=== PATIENT | male | born 1960 | race Hispanic/Latino ===

== ENCOUNTER → 2019-07-12 | Day surgery (SDC) | payer OTHER ==
[2019-07-11 11:26] LABS: BASOPHILS # (AUTO) 0.1 (0.0-0.1); BASOPHILS % 0.7 % (0.0-1.0); EOSINOPHILS # (AUTO) 1.2 (0.0-0.4); EOSINOPHILS % 11.2 % (0.0-6.0); HEMATOCRIT 46.1 % (38.2-49.6); HEMOGLOBIN 15.6 g/dL (14.0-18.0); LYMPHOCYTES # (AUTO) 2.5 (1.0-3.2); MEAN CORPUSCULAR HEMOGLOBIN 32.1 pg (28-32); MEAN CORPUSCULAR HGB CONC 33.8 g/dL (31-35); MEAN CORPUSCULAR VOLUME 94.9 fL (81-99); MONOCYTES # (AUTO) 0.8 (0.2-0.8); MONOCYTES % 7.2 % (4.4-11.3); NEUTROPHILS # (AUTO) 6.3 (2.1-6.9); NEUTROPHILS % 57.4 % (38.7-80.0); PLATELET COUNT 195 x10e3/uL (140-360); RED BLOOD COUNT 4.86 x10e6/uL (4.3-5.7); RED CELL DISTRIBUTION WIDTH 12.5 % (11.7-14.4)
[2019-07-11 11:43] LABS: ANION GAP 14.2 mmol/L (8-16); BLOOD UREA NITROGEN 17 mg/dL (7-26); BUN/CREATININE RATIO 19 (6-25); CALCIUM 10.4 mg/dL (8.4-10.2); CARBON DIOXIDE 25 mmol/L (22-29); CHLORIDE 103 mmol/L (98-107); CREATININE, SERUM 0.88 mg/dL (0.72-1.25); EST GLOMERULAR FILTRATION RATE > 60 ML/MIN (60-); GLUCOSE 70 mg/dL (74-118); POTASSIUM 4.2 mmol/L (3.5-5.1); SODIUM 138 mmol/L (136-145)
--- NOTE | 2019-07-11 12:51 | Diagnostic Imaging Report ---
EXAMINATION: CHEST 2 VIEWS INDICATION: Pre-operative COMPARISON: None FINDINGS: LINES/TUBES:None LUNGS:The lungs are well-inflated. No focal consolidation or pulmonary edema. Scattered subcentimeter calcified granulomas. PLEURA:No pleural effusion or pneumothorax. MEDIASTINUM:The cardiomediastinal silhouette appears normal in size and shape. BONES/SOFT TISSUES:No acute osseous injury. ABDOMEN:No free air under the diaphragm. IMPRESSION: No focal pneumonia or pulmonary edema. Signed by: Mary Mixon MD on 07/11/2019 12:48 PM
[~2019-07-12] MED LIST: ACETAMINOPHEN 1000 MG/100 ML 100 ML IV ONE; AMLODIPINE BESYL5 MG PO; ASPIRIN81 MG PO; BACITRACIN 50,000 UNIT VIAL ONE; BUPIVACAINE 0.5%/EPI 30 ML SDV INJ ONE; CEFAZOLIN SOD 1 GM/NS 50ML 50 ML IV ONE; CENTRUM SILVER1 EAC3 PEG; CILOSTAZOL100 MG PO; DEXAMETHASONE SOD PHOS INJ 4 MG/ML VIAL ONE; DEXTROSE 5% 250ML 250 ML IV ONE; EPHEDRINE SULFATE INJ 50 MG/10 ML SYR ONE; FENTANYL CITRATE/PF 100MCG/2 ML INJ ONE; GLIMEPIRIDE2 MG PO; JANUVIA100 MG PO; LEVEMIR100 UNIT/1 SQ; LIDOCAINE 1% W/EPINEPHRINE 20 ML VIAL ONE; LIDOCAINE HCL 2% LOCAL INJ 5 ML SDV VIAL INJ ONE; LISINOPRIL10 MG PO; LOSARTAN POTASS25 MG PO; LOVASTATIN40 MG PO; METFORMIN HCL500 MG PO; MIDAZOLAM HCL 2 MG/2 ML VIAL ONE; ONDANSETRON HCL INJ 2MG/ML 2ML 2 MG/ML VIAL ONE; PROPOFOL IV EMULSION 10 MG/ML 20 ML VIAL ONE; SEVOFLURANE INHAL SOLN 250 ML PEN BTL ONE
--- OUTSIDE RECORDS SUMMARY | 2019-07-12 06:44 | XMS REPORT ---
Author Author [facility] Organization [facility] Address Unknown Phone Unavailable Care Team Providers Care Tape Keller Operator Name Role Phone ALLY BAILON Unavailable Unavailable Payers Payer Name Policy Type Policy Number Effective Date Expiration Date Problems This patient has no known problems. Allergies, Adverse Reactions, Alerts Allergy Name Allergy Type Status Severity Reaction(s) Onset Date Inactive Date Treating Clinician Comments No Known Allergies DA Active U 2019-02-19 00:00:00 Medications This patient has no known medications. Results Test Description Test Time Test Comments Text Results Atomic Results Result Comments CHEST 2 VIEWS 2019-07-11 12:47:[address] [address] Patient Name: LINDA CORTÉS MR #: [id number] : 1960 Age/Sex: 59/M Req #: [id number] Adm Physician: Ordered by: ALLY BAILON MD Report #: [id number] Location: OR Room/Bed: Procedure: [id number] DX/CHEST 2 VIEWS Exam Date: 07/11/19 Exam Time: 1150 REPORT STATUS: Signed EXAMINATION: CHEST 2 VIEWS INDICATION: Pre-operative COMPARISON: None FINDINGS: LINES/TUBES:None LUNGS:The lungs are well-inflated. No focal consolidation or pulmonary edema. Scattered subcentimeter calcified granulomas. PLEURA:No pleural effusion or pneumothorax. MEDIASTINUM:The cardiomediastinal silhouette appears normal in size and shape. BONES/SOFT TISSUES:No acute osseous injury. ABDOMEN:No free air under the diaphragm. IMPRESSION: No focal pneumonia or pulmonary edema. Signed by: Cirilo Nazario MD on 07/11/2019 12:48 PM Dictated By: CIRILO NAZARIO MD 47 Transcribed By: MIGUEL on 07/11/198 COPY TO: ALLY BAILON MD - CT ABD PELVIS W/CONT 2019-02-19 23:26:00 Name: LINDA CORTÉS [facility] : 1960 Age/S: 58 / M [address] [facility] Unit #: [id number] Loc: [place] [address] Phys: Shannon Mulligan MD Acct: [id number] Dis Date: Status: REG ER PHONE #: [phone] Exam Date: 02/19/2019 2250 FAX #: [phone] Reason: LLQ PAIN EXAMS: CPT CODE: [id number] CT ABD PELVIS W/CONT 25836 CT abdomen and pelvis with IV contrast. Indication: Left lower quadrant pain Location: R16 Comparison: None available Technique: CT images of the abdomen and pelvis were obtained from the diaphragm to the pubic symphysis after the administration of intravenous contrast contrast. Coronal reformats are provided. One or more of the following dose reduction techniques were used: Automated exposure control, adjustment of the mA and/or kV according to patient size, and/or utilization of iterative reconstruction technique. Findings: Lungs bases: Unremarkable. Liver: Unremarkable. Gallbladder: Unremarkable. Pancreas: Unremarkable. Spleen: Unremarkable. Adrenal glands: Unremarkable. Kidneys: Unremarkable. Bowel: No bowel obstruction. The appendix is unremarkable.. A large volume of stool seen throughout the colon nonspecific but compatible clinical diagnosis of constipation. Peritoneum: No ascites. No free air. Bilateral fat-containing groin hernias are noted Pelvis: Nonspecific left anterior bladder wall thickening and asymmetry is of uncertain clinical significance; however underlying neoplasm is difficult to exclude. Recommend further evaluation with cystoscopy Skeletal: No acute fracture.. Impression: Nonspecific left anterior bladder wall thickening and asymmetry is of uncertain clinical significance; however underlying neoplasm is difficult to exclude. Recommend further evaluation with cystoscopy A large volume of stool seen throughout the colon nonspecific but PAGE 1 Signed Report (CONTINUED) Name: LINDA CORTÉS [facility] : 1960 Age/S: 58 / M [address] [facility] Unit #: [id number] Loc: [place] [address] Phys: Shannon Mulligan MD Acct: [id number] Dis Date: Status: REG ER PHONE #: [phone] Exam Date: 02/19/20192249 FAX #: [phone] Reason: LLQ PAIN EXAMS: CPT CODE: [id number] CT ABD PELVIS W/CONT 24088 <Continued> compatible clinical diagnosis of constipation. at 2766 Reported and signed by: Eliana Ann M.D. CC: Technologist:RT GONZALEZ; Zoe Rubio CTDI: DLP: Trnscb Date/Time: 02/19/2019 (2325) [email or web address] Orig Print D/T: S: 02/19/2019 (8953) PAGE 2 Signed Report [id number] 2019-02-19 22:29:00 GLYCOSYLATED HEMOGLOBIN (HA1C) (test code=GLYHGB) 7.9 % HbA1 4.8-6.0 ESTIMATED AVERAGE GLUCOSE (test code=EAG) 180 MG/DL COMPREHENSIVE METABOLIC [id number] 22:27:00* Test Item Value Reference Range Comments SODIUM (test code=NA) 136 mmol/L 136-145 POTASSIUM (test code=K) 4.1 mmol/L 3.5-5.1 CHLORIDE (test code=CL) 104.0 mmol/L 98-107 CARBON DIOXIDE (test code=CO2) 24.0 mmol/L 21-32 ANION GAP (test code=GAP) 12.1 10-20 GLUCOSE (test code=GLU) 260 mg/dL 74-106 BLOOD UREA NITROGEN (test code=BUN) 10 mg/dL 7-18 GLOMERULAR FILTRATION RATE (test code=GFR) > 60 mL/min >=60 Estimated GFR by using Modified MDRD formula.Chronic kidney disease is defined as either kidney damageor GFR <60 mL/min/1.73 m2 for >3 months. CREATININE (test code=CREAT) 0.90 mg/dL 0.7-1.3 BUN/CREATININE RATIO (test code=BUN/CREA) 11.1 10-20 TOTAL PROTEIN (test code=PROT) 8.4 gram/dL 6.4-8.2 ALBUMIN (test code=ALB) 3.9 g/dL 3.4-5.0 GLOBULIN (test code=GLOB) 4.5 gram/dL 2.7-4.2 ALBUMIN/GLOBULIN RATIO (test code=A/G) 0.9 0.75-1.50 CALCIUM (test code=CA) 8.6 mg/dL 8.5-10.1 BILIRUBIN TOTAL (test code=BILT) 0.20 mg/dL 0.0-1.0 SGOT/AST (test code=AST) 47 IUnit/L 15-37 SGPT/ALT (test code=ALT) 65 IUnit/L 12-78 ALKALINE PHOSPHATASE TOTAL (test code=ALKP) 126 IUnit/L 45-117 Note change in reference range due to change in reagent. [id number] 22:27:00* Test Item Value Reference Range Comments ALCOHOL (test code=ALC) 261 mg/dL 0.0-3.0 INTERPRETIVE DATA NOTE: POSITIVE SCREENING RESULTS SHOULD BE CONSIDERED PRESUMPTIVE.WHEN COLLECTED FOR MEDICAL PURPOSES ONLY. SPECIMEN WILL NOTBE COLLECTED BY CHAIN OF CUSTODY.IF A CONFIRMATION OF POSITIVE RESULTS IS DESIRED, ACONFIRMATION TEST MUST BE REQUESTED BY THE PHYSICIAN AT ANADDITIONAL CHARGE TO THE PATIENT. COMPREHENSIVE METABOLIC [id number] 22:19:00* Test Item Value Reference Range Comments SODIUM (test code=NA) 136 mmol/L 136-145 POTASSIUM (test code=K) 4.1 mmol/L 3.5-5.1 CHLORIDE (test code=CL) 104.0 mmol/L 98-107 CARBON DIOXIDE (test code=CO2) mmol/L 21-32 ANION GAP (test code=GAP) 10-20 GLUCOSE (test code=GLU) mg/dL 74-106 BLOOD UREA NITROGEN (test code=BUN) mg/dL 7-18 GLOMERULAR FILTRATION RATE (test code=GFR) mL/min >=60 CREATININE (test code=CREAT) mg/dL 0.7-1.3 BUN/CREATININE RATIO (test code=BUN/CREA) 10-20 TOTAL PROTEIN (test code=PROT) gram/dL 6.4-8.2 ALBUMIN (test code=ALB) g/dL 3.4-5.0 GLOBULIN (test code=GLOB) gram/dL 2.7-4.2 ALBUMIN/GLOBULIN RATIO (test code=A/G) 0.75-1.50 CALCIUM (test code=CA) mg/dL 8.5-10.1 BILIRUBIN TOTAL (test code=BILT) mg/dL 0.0-1.0 SGOT/AST (test code=AST) IUnit/L 15-37 SGPT/ALT (test code=ALT) IUnit/L 12-78 ALKALINE PHOSPHATASE TOTAL (test code=ALKP) IUnit/L 45-117 [id number] 22:19:00* Test Item Value Reference Range Comments ALCOHOL (test code=ALC) mg/dL 0-3 CBC W/AUTO [id number] 22:06:00* Test Item Value Reference Range Comments WHITE BLOOD CELL (test code=WBC) 8.0 K/mm3 4.5-12.5 RED BLOOD CELL (test code=RBC) 4.58 mill/mm3 4.0-5.8 HEMOGLOBIN (test code=HGB) 14.6 gram/dL 13.0-17.5 HEMATOCRIT (test code=HCT) 42.6 % 42.0-52.0 MEAN CELL VOLUME (test code=MCV) 93.0 fL 80-98 MEAN CELL HGB (test code=MCH) 31.9 picogram 27.0-33.0 MEAN CELL HGB CONCETRATION (test code=MCHC) 34.3 gram/dL 33.0-36.0 RED CELL DISTRIBUTION WIDTH (test code=RDW) 13.1 % 11.6-16.2 RED CELL DISTRIBUTION WIDTH SD (test code=RDW-SD) 44.4 fL 37.0-51.0 PLATELET COUNT (test code=PLT) 162 K/mm3 150-450 MEAN PLATELET VOLUME (test code=MPV) 8.9 fL 6.7-11.0 NEUTROPHIL % (test code=NT%) 30.4 % 39.0-69.0 IMMATURE GRANULOCYTE % (test code=IG%) 0.5 % 0.0-5.0 LYMPHOCYTE % (test code=LY%) 41.2 % 25.0-55.0 MONOCYTE % (test code=MO%) 9.4 % 0.0-10.0 EOSINOPHIL % (test code=EO%) 17.5 % 0.0-5.0 BASOPHIL % (test code=BA%) 1.0 % 0.0-1.0 NUCLEATED RBC % (test code=NRBC%) 0.0 % 0-0 NEUTROPHIL # (test code=NT#) 2.43 K/mm3 1.8-7.7 IMMATURE GRANULOCYTE # (test code=IG#) 0.04 x10 3/uL 0-0.03 LYMPHOCYTE # (test code=LY#) 3.29 K/mm3 1.0-5.0 MONOCYTE # (test code=MO#) 0.75 K/mm3 0-0.8 EOSINOPHIL # (test code=EO#) 1.40 K/mm3 0.0-0.5 BASOPHIL # (test code=BA#) 0.08 K/mm3 0.0-0.2 NUCLEATED RBC # (test code=NRBC#) 0.00 K/mm3 0.0-0.1 MANUAL DIFF REQUIRED (test code=MDIFF) NO URINALYSIS [id number] 21:59:00* Test Item Value Reference Range Comments UA COLOR (test code=COLU) COLORLESS YELLOW UA APPEARANCE (test code=APPU) CLEAR CLEAR UA GLUCOSE DIPSTICK (test code=DGLUU) 500 (3+) mg/dL NEGATIVE UA BILIRUBIN DIPSTICK (test code=BILU) NEGATIVE mg/dL NEGATIVE UA KETONE DIPSTICK (test code=KETU) NEGATIVE mg/dL NEGATIVE UA SPECIFIC GRAVITY (test code=SGU) 1.002 1.001-1.035 UA BLOOD DIPSTICK (test code=BARRIE) Negative mg/dL NEGATIVE UA PH DIPSTICK (test code=EN) 5.0 5.0-8.0 UA PROTEIN DIPSTICK (test code=PROU) NEGATIVE mg/dL NEGATIVE UA UROBILINIOGEN DIPSTICK (test code=URO) Normal mg/dL NEGATIVE UA NITRITE DIPSTICK (test code=MARY) NEGATIVE NEGATIVE UA LEUKOCYTE ESTERASE W REFLEX (test code=LEUUR) NEGATIVE Ladonna/uL NEGATIVE UA WBC (test code=WBCU) 0-5 per HPF 0-5 UA RBC (test code=RBCU) 0-2 #/HPF 0-5 UA EPITHELIAL CELLS (test code=EPIU) None seen per HPF FEW UA BACTERIA (test code=BACU) NONE SEEN #/HPF NONE UA MUCUS (test code=MUCU) FEW #/LPF FEW Urine Source? Clean CatchURINALYSIS [id number] 21:47:00* Test Item Value Reference Range Comments UA COLOR (test code=COLU) COLORLESS YELLOW UA APPEARANCE (test code=APPU) CLEAR CLEAR UA GLUCOSE DIPSTICK (test code=DGLUU) 500 (3+) mg/dL NEGATIVE UA BILIRUBIN DIPSTICK (test code=BILU) NEGATIVE mg/dL NEGATIVE UA KETONE DIPSTICK (test code=KETU) NEGATIVE mg/dL NEGATIVE UA SPECIFIC GRAVITY (test code=SGU) 1.002 1.001-1.035 UA BLOOD DIPSTICK (test code=BARRIE) Negative mg/dL NEGATIVE UA PH DIPSTICK (test code=EN) 5.0 5.0-8.0 UA PROTEIN DIPSTICK (test code=PROU) NEGATIVE mg/dL NEGATIVE UA UROBILINIOGEN DIPSTICK (test code=URO) Normal mg/dL NEGATIVE UA NITRITE DIPSTICK (test code=MARY) NEGATIVE NEGATIVE UA LEUKOCYTE ESTERASE W REFLEX (test code=LEUUR) NEGATIVE Ladonna/uL NEGATIVE UA WBC (test code=WBCU) per HPF 0-5 UA RBC (test code=RBCU) per HPF 0-5 UA EPITHELIAL CELLS (test code=EPIU) per HPF Few UA BACTERIA (test code=BACU) per HPF NONE Urine Source? Clean Catch
--- NOTE | 2019-07-12 15:14 | Operative Report ---
DATE OF PROCEDURE: 07/12/2019 SURGEON: Bj Lopez MD PREOPERATIVE DIAGNOSIS: Bilateral groin hernia. POSTOPERATIVE DIAGNOSIS: Bilateral groin hernia. PROCEDURE PERFORMED: Repair of left inguinal hernia. ANESTHESIA: General. ESTIMATED BLOOD LOSS: Minimal. DRAINS: None. COMPLICATIONS: None. INDICATION AND FINDINGS: This patient is a 59-year-old male admitted for staged repair of bilateral inguinal hernia. He complained of bilateral groin pain and was found to have bulges in both hernias by me left greater than right. He was advised to have surgery two years ago, but did not follow up. Now, he comes back requesting a staged repair. INTRAOPERATIVE FINDINGS: The patient had a large direct left inguinal hernia. There was no indirect hernia sac. There was a lipoma of the cord that was excised. DESCRIPTION OF PROCEDURE: With the patient lying on the operative table in the supine position after administration of general anesthesia, he was prepped and draped for repair of left inguinal hernia. Preemptive anesthesia was given with 0.25% Marcaine with epinephrine as an ilioinguinal nerve block and an incisional nerve block. A transverse groin incision was made deep into the skin, subcutaneous tissues, Vinicius fascia until the external oblique aponeurosis was identified. This was incised along the course of the fibers transecting the external inguinal ring. Medial and lateral leaves were developed. The cord was mobilized at the level of the pubic tubercle and retracted away from the operative field by Wheeler drain. The cremaster area was then incised and indirect hernia sac was not found. Lipoma of the cord was slightly ligated with 2-0 silk. The transversalis fascia was incised and a pocket was created using blunt dissection to accommodate the mesh then the Ultrapro hernia system oval type was then deployed with the underlay part of the mesh over the direct space and the overlay part of the mesh over the inguinal canal floor. A slit was made to accommodate the cord and then the mesh was secured to local tissues using a series of interrupted 2-0 Ethibond sutures after knitting with Vicryl stitches. After we did that, we inspected the operative field and irrigated the operative field. Hemostasis was adequate. There was no bleeding then the wound was closed in layers using 2-0 Vicryl for the external oblique aponeurosis. 3-0 plain catgut for the soft tissues and the skin was closed using dayne. A local field block was given at the end of the case with 0.5% Marcaine with epinephrine. The sponge and instrument count were pronounced correct. The patient's daughter was given postop instructions. MD JUAN Musa/LUANN /[id number]
== END | disposition home or self-care (01) ==
LOC: OR 06:42
PROVIDERS: ATTEND Surgery
DX: K40.90 Unilateral inguinal hernia, without obstruction or gangrene, not specified as recurrent (principal); D17.6 Benign lipomatous neoplasm of spermatic cord; E11.9 Type 2 diabetes mellitus without complications; I10 Essential (primary) hypertension; K44.9 Diaphragmatic hernia without obstruction or gangrene; Z01.810 Encounter for preprocedural cardiovascular examination; Z01.812 Encounter for preprocedural laboratory examination; Z01.818 Encounter for other preprocedural examination; Z79.84 Long term (current) use of oral hypoglycemic drugs; Z79.82 Long term (current) use of aspirin; Z79.4 Long term (current) use of insulin
CPT/HCPCS: 36415 ×2; 49505; 71046; 80048; 82948; 85025; 93005; C1781; J0131; J0690; J1100; J2001; J2250; J2405; J2704; J3010; J7070

== ENCOUNTER → 2019-07-26 | Day surgery (SDC) | payer OTHER ==
[~2019-07-26] MED LIST changes: -ACETAMINOPHEN 1000 MG/100 ML 100 ML IV ONE; +ACETAMINOPHEN 1000 MG/100 ML IV ONE; -BACITRACIN 50,000 UNIT VIAL ONE; +BUPIVACAINE 0.25%/EPI 30ML SDV INJ ONE; -BUPIVACAINE 0.5%/EPI 30 ML SDV INJ ONE; -DEXTROSE 5% 250ML 250 ML IV ONE; -LIDOCAINE 1% W/EPINEPHRINE 20 ML VIAL ONE
--- NOTE | 2019-07-26 09:47 | Operative Report ---
DATE OF PROCEDURE: 07/26/2019 SURGEON: Bj Lopez MD PREOPERATIVE DIAGNOSIS: Right inguinal hernia. POSTOPERATIVE DIAGNOSIS: Right inguinal hernia. PROCEDURE PERFORMED: Repair of right inguinal hernia with Ultrapro Hernia System, oval type. LOG RAFT WORKER: SUSANNA Bansal. ESTIMATED BLOOD LOSS: Minimal. DRAINS: None. COMPLICATIONS: None. INDICATIONS AND FINDINGS: The patient is a 59-year-old male admitted for completion of staged repair of bilateral inguinal hernias. INTRAOPERATIVE FINDINGS: Indirect hernia sac that was empty. The Ultrapro hernia system large type was placed. DESCRIPTION OF PROCEDURE: With the patient lying on the operative table in the supine position after administration of general anesthesia, he was prepped and draped for repair of right inguinal hernia. Preemptive anesthesia was given with 0.5% Marcaine with epinephrine as an ilioinguinal nerve block and an incisional nerve block. A transverse groin incision was made, deepened through the skin, subcutaneous tissue, Vinicius fascia until the external oblique aponeurosis was identified. This was incised along the course of its fibers, transecting the external inguinal ring. Medial and lateral leaves were developed. The cord was mobilized at the level of the pubic tubercle and retracted away from the operative field by Deni drain. The cremasteric vein was incised and indirect hernia sac was searched for and found. He was highly ligated using 2-0 silk. After we did that, we incised the transversalis fascia and exposed the preperitoneal space. The inferior epigastric vessels were sacrificed to allow exposure. We then deployed the mesh with the underlay part of the mesh over the direct space and the overlay part of the mesh over the inguinal canal floor. A slit was made to accommodate the cord. The mesh was secured to local tissue using a series of interrupted 2-0 Ethibond sutures. The wound was irrigated. Bleeding points were cauterized. Then, the wound was closed in layers using 2-0 Vicryl for the external oblique aponeurosis, 2-0 catgut for the soft tissues, and the skin was closed with dayne. 0.25% Marcaine with epinephrine was given as local block. The patient tolerated the procedure well, taken to recovery room in stable condition. MD JUAN Musa/LUANN /[id number]
[2019-07-26 09:50] VITALS: BP 143/77
== END | disposition home or self-care (01) ==
LOC: OR 05:34
PROVIDERS: ATTEND Surgery
DX: K40.90 Unilateral inguinal hernia, without obstruction or gangrene, not specified as recurrent (principal); I10 Essential (primary) hypertension; E11.9 Type 2 diabetes mellitus without complications; F17.210 Nicotine dependence, cigarettes, uncomplicated; Z79.84 Long term (current) use of oral hypoglycemic drugs; Z79.4 Long term (current) use of insulin; Z79.82 Long term (current) use of aspirin
CPT/HCPCS: 36415; 49505; 82948; C1781; J0131; J0690; J1100; J2001; J2250; J2405; J2704; J3010